=== PATIENT | female | born 1965 | race Caucasian/White ===

== ENCOUNTER → 2017-11-14 | Outpatient (CLI) | payer OTHER ==
[~2017-11-14] VITALS: Ht 175.3 cm; Wt 70.3 kg
[2017-11-14] VITALS (11 sets, daily range): BP systolic 124–150; BP diastolic 68–96; PULSE 69–88
[~2017-11-14] MED LIST: IRON TABLETS325 MG PO; MOTRIN 800800 MG/TAB PO; PRILOSEC 20MG20 MG PO; PRILOTC; ULTRAM 50MG TAB50 MG PO; VIACTIVE PO; VITAMINC500CH PO
== END ==
LOC: COL.RAD 09:30
PROVIDERS: Physician Assistant
DX: K76.0 Fatty (change of) liver, not elsewhere classified (principal)

== ENCOUNTER → 2018-01-22 | Outpatient (CLI) | payer OTHER | LOC: COL.RAD 08:15 | DX: K76.0 Fatty (change of) liver, not elsewhere classified (principal); K82.8 Other specified diseases of gallbladder; R16.2 Hepatomegaly with splenomegaly, not elsewhere classified; N27.0 Small kidney, unilateral; R74.8 Abnormal levels of other serum enzymes ==

== ENCOUNTER → 2018-06-19 | Outpatient (CLI) | payer OTHER | LOC: COL.RAD 10:16 | DX: K74.60 Unspecified cirrhosis of liver (principal); R16.1 Splenomegaly, not elsewhere classified ==

== ENCOUNTER → 2018-12-11 | Outpatient (CLI) | payer OTHER | LOC: COL.RAD 14:09 | DX: K76.0 Fatty (change of) liver, not elsewhere classified (principal); K74.60 Unspecified cirrhosis of liver ==

== ENCOUNTER → 2019-07-02 | Outpatient (CLI) | payer OTHER | LOC: COL.RAD 08:00 | DX: K74.60 Unspecified cirrhosis of liver (principal); I85.10 Secondary esophageal varices without bleeding; K76.0 Fatty (change of) liver, not elsewhere classified; K22.70 Barrett's esophagus without dysplasia | CPT/HCPCS: A9585 ==

== ENCOUNTER → 2020-01-29 | Outpatient (CLI) | payer OTHER | LOC: COL.RAD 01-27 09:45 | DX: K76.0 Fatty (change of) liver, not elsewhere classified (principal) ==

== ENCOUNTER → 2020-07-30 | Outpatient (CLI) | payer OTHER | LOC: COL.RAD 06:58 | DX: K74.60 Unspecified cirrhosis of liver (principal) ==